=== PATIENT | male | born 1995 | race Asian ===

== ENCOUNTER 2016-09-16 03:58 | Emergency (ER) | payer OTHER ==
[2016-09-16 04:09] VITALS: TEMP 36.4
[2016-09-16 04:34] LABS: BLOOD UREA NITROGEN 15 mg/dl (7-18); CALCIUM 8.3 mg/dl (8.5-10.1); CARBON DIOXIDE 22 mmol/L (21-32); CHLORIDE 105 mmol/L (98-107); CREATININE 0.82 mg/dl (0.60-1.40); GLUCOSE 130 mg/dl (70-99); POTASSIUM 3.3 mmol/L (3.5-5.1); SODIUM 141 mmol/L (136-145)
--- NOTE | 2016-09-16 06:32 | EMERGENCY ROOM VISIT NOTE ---
History First contact with patient: 04:03 Chief Complaint: ALCOHOL OVERDOSE Stated Complaint: ALCOHOL OVERDOSE Nursing Triage Summary: Patient arrives via ALS transport after being found passed out in a karaoke bar. EMS states that the karaoke bar employees were cleaning up, found the patient passed out and called EMS. Patient is responsive to some painful stimuli upon arrival to ED. Patient BSG was 116 per EMS. History of Present Illness The patient is a 21 year old male who presents to the Emergency Room via ALS for evaluation of an alcohol overdose. The history is limited due to the patient's intoxicated state. Per EMS, the patient was found passed out behind a table at a [employer] bar. The bar had closed and the employees were cleaning up when they found the patient. The patient is responsive to painful stimuli. EMS reports that the patient's blood glucose was found to be 116. There does not appear to be any trauma. The patient denied any drug use. Review of Systems A complete 10-point Review of Systems was discussed with the patient, with pertinent positives and negatives listed in the History of Present Illness. All remaining Review of Systems questions can be considered negative unless otherwise specified. Social History Smoking Status: Never Smoker Current/Historical Medications Unable to Obtain Active Prescriptions or Reported Meds Physical Exam Vital Signs Date Time Temp Pulse Resp B/P Pulse Ox O2 Delivery O2 Flow Rate FiO2 09/16/16 09:42 93 18 110/65 98 09/16/16 08:47 104 16 127/61 97 Room Air 09/16/16 07:03 92 18 110/64 96 Room Air 09/16/16 04:09 36.4 88 16 114/56 98 Room Air 09/16/16 04:09 89 Physical Exam VITALS: Vitals are noted on the nurse's note and reviewed by myself. Vital signs stable. GENERAL: This is a 21-year-old male, lying prone in bed, appears to be visibly intoxicated, smells of ETOH. SKIN: The skin was without erythema, edema, or bruising. HEAD: Normocephalic atraumatic. EARS: External auditory canals clear. No hemotympanum. EYES: Pupils equal round and reactive to light and accommodation. NOSE: No deformities noted. MOUTH: No loose or chipped teeth. NECK: No cervical spine tenderness. HEART: Regular rate and rhythm without murmurs gallops or rubs. LUNGS: Clear to auscultation bilaterally without wheezes, rales or rhonchi. ABDOMEN: Soft, nontender. MUSCULOSKELETAL: No deformities. Full passive range of motion throughout. NEURO: Patient was responsive only to painful stimuli. Patient cooperative with examiner. Medical Decision & Procedures Laboratory Results 09/16/16 04:07 Test 09/16/16 04:07 Anion Gap 14.0 mmol/L (3-11) Estimated GFR () 145.5 Estimated GFR (Non- 125.5 BUN/Creatinine Ratio 18.0 (10-20) Calcium Level 8.3 mg/dl (8.5-10.1) Ethyl Alcohol mg/dL 211.0 mg/dl (0-3) Medical Decision Differential diagnosis includes drug intoxication, alcohol intoxication, head trauma, hypoglycemia, among others. The patient was evaluated as above. He is responsive to painful stimuli on arrival. Alcohol was found to be 211. Blood glucose was found to be 130. The patient was placed in the prone position and placed on the groundwater monitoring technician. He was monitored throughout the duration of his stay. He was reassessed multiple times and had no complaints. When the patient had woken up, he attempted to find a sober ride but was unable. When it was estimated that his alcohol level was under 100, he was discharged home in a taxi. He was instructed not to drink anymore alcohol today and to follow-up with [facility] as needed. Impression Primary Impression: Alcohol use with intoxication Departure Information Dispostion Home / Self-Care Condition GOOD Prescriptions Unable to Obtain Active Prescriptions or Reported Meds Patient Instructions [facility] Additional Instructions Do not drink any alcohol today. For pain control, you can use the following [id number] medicines (if >12 yo): - Regular strength (325mg/tab) Tylenol (acetaminophen) 2 tabs every 4-6 hours as needed. Do not exceed 12 tablets in a 24 hour period. Avoid taking more than 4 grams (4000 mg) of Tylenol per day. This includes any other sources of acetaminophen you may take on a regular basis. - Regular strength (200 mg/tab) Advil (ibuprofen) 1-2 tabs every 4-6 hours as needed. Do not exceed a dose of 3200 mg per day. Rest and drink plenty of fluids. Follow-up with your family doctor as needed.
[2016-09-16 09:42] VITALS: BP 110/65; PULSE 93; O2SAT 98
== END 2016-09-16 09:43 | disposition home or self-care (01) ==
LOC: C.EDA 04:02
DX: F10.129 Alcohol abuse with intoxication, unspecified (principal); Y90.7 Blood alcohol level of 200-239 mg/100 ml